=== PATIENT | male | born 1990 ===

== ENCOUNTER 2018-05-11 01:43 | Emergency (ER) | payer OTHER ==
[2018-05-11 01:53] VITALS: BP 132/88; PULSE 82; RESP 16; TEMP 98.3; O2SAT 96
--- NOTE | 2018-05-11 02:34 | ED PDOC ---
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 States he was bearing the full weight of the grill. States decreased range of motion and "tingling and numbness" of the L arm. Past Medical History Reviewed: Historical Data, Nursing Documentation, Vital Signs Vital Signs: Last Vital Signs Temp 98.3 F 05/11/18 01:50 Pulse 82 05/11/18 01:50 Resp 16 05/11/18 01:50 BP 132/88 05/11/18 01:50 Pulse Ox 96 05/11/18 01:50 - Medical History PMH: No Chronic Diseases - Family History Family History: States: No Known Family Hx - Home Medications Home Medications: Ambulatory Orders Medication Instructions Recorded Ibuprofen [Motrin Tab] 600 mg PO Q6 #30 tab 05/11/18 - Allergies Allergies/Adverse Reactions: Allergies Allergy/AdvReac Type Severity Reaction Status Date / Time No Known Allergies Allergy Verified 05/11/18 01:53 Review of Systems ROS Statement: Except As Marked, All Systems Reviewed And Found Negative Musculoskeletal: Positive for: Arm Pain, Hand Pain Physical Exam - Reviewed Nursing Documentation Reviewed: Yes Vital Signs Reviewed: Yes - Physical Exam Appears: Positive for: Well, Non-toxic, No Acute Distress Head Exam: Positive for: ATRAUMATIC, NORMAL INSPECTION, NORMOCEPHALIC Extremity: Positive for: Swelling (Distal radius swelling, decreased sensation to 4th/5th digit, warm and well perfused, good capillary refill, able to grasp and extend fingers) - ECG O2 Sat by Pulse Oximetry: 96 Medical Decision Making Medical Decision Making: Patient with crush injury of wrist --No significant fracture seen on xray --Will place in sugar tong splint --Will need outpatient hand referral --NSAIDs for pain Disposition - Clinical Impression Clinical Impression: Wrist contusion - Patient ED Disposition Is Patient to be Admitted: No - Disposition Referrals: Bob Abel MD [Staff Provider] - Disposition: Routine/Home Disposition Time: 02:55 Condition: IMPROVED Prescriptions: Ibuprofen [Motrin Tab] 600 mg PO Q6 #30 tab Instructions: Contusion (DC) Forms: [facility] ([place]er) Print Language: ENGLISH
--- NOTE | 2018-05-11 12:35 | RAD ---
Date of service: 05/11/2018 PROCEDURE: Left Wrist Radiographs. HISTORY: s/p injury, caught in metal door COMPARISON: None. FINDINGS: BONES: Bone alignment and mineralization are normal. There is no acute displaced fracture or bone destruction. There is negative ulnar variance. JOINTS: Normal. No dislocation. SOFT TISSUES: There is moderate dorsal soft tissue swelling and subcutaneous edema OTHER FINDINGS: None. IMPRESSION: No acute fracture or dislocation. Moderate dorsal soft tissue swelling and subcutaneous edema at the wrist joint.
== END 2018-05-11 03:20 | disposition home or self-care (01) ==
LOC: H.ER 01:43
DX: S60.212A Contusion of left wrist, initial encounter (principal); W22.8XXA Striking against or struck by other objects, initial encounter; Y99.0 Civilian activity done for income or pay